=== PATIENT | male | born 1985 | race American Indian/Alaskan Native ===

== ENCOUNTER 2016-12-27 04:25 | Emergency (ER) | payer OTHER ==
[2016-12-27] MEDS ORDERED: NORCO 5/325 ONE (04:37)
[2016-12-27] MEDS ORDERED: NORCO 5/325 PO ONE (04:49)
[2016-12-27 04:57] VITALS: BP 127/67
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
== END 2016-12-27 05:50 | disposition home or self-care (01) ==
LOC: ED 04:25
DX: M79.1 Myalgia (principal); V49.40XA Driver injured in collision with unspecified motor vehicles in traffic accident, initial encounter; Y93.89 Activity, other specified; Y99.9 Unspecified external cause status; Y92.410 Unspecified street and highway as the place of occurrence of the external cause
CPT/HCPCS: 99283